=== PATIENT | female | born 1960 | race Caucasian/White ===

== ENCOUNTER 2020-03-24 13:31 | Emergency (ER) | payer BC ==
[2020-03-24] MEDS ORDERED: diphenhydrAMINE 50 MG/ML SDV IVPUSH ONE (14:05)
[2020-03-24] MEDS ORDERED: Ketorolac 30 MG/ML SDV IVPUSH ONE (14:05)
[2020-03-24] MEDS ORDERED: Metoclopramide 10 MG/2 ML SDV IVPUSH ONE (14:05)
[2020-03-24] MEDS ORDERED: Sodium Chloride 0.9% 10 ML Syringe FLUSH PRN (14:05)
[2020-03-24] MEDS ORDERED: Sodium Chloride 0.9% 1,000 ML IV ONE (14:05)
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
== END 2020-03-24 15:18 | disposition home or self-care (01) ==
LOC: JD.ED 13:31
DX: J01.00 Acute maxillary sinusitis, unspecified (principal); E66.9 Obesity, unspecified; Z68.31 Body mass index [BMI] 31.0-31.9, adult
CPT/HCPCS: 96374; 96375; 99283; J1200; J1885; J2765; J7030